=== PATIENT | male | born 1995 | race Caucasian/White ===

== ENCOUNTER 2020-10-13 09:54 | Emergency (ER) | payer SELFPAY ==
[2020-10-13 10:01] VITALS: BP 123/79; PULSE 91; RESP 16; TEMP 36.5; O2SAT 99; BMI 20.7
--- NOTE | 2020-10-13 10:14 | ECG_ITS ---
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 Measurements Intervals [place] Rate: 75 P: -2 WV: 143 QRS: 85 QRSD: 105 T: 60 QT: 369 QTc: 413 Interpretive Statements SINUS RHYTHM No previous ECG available for comparison Electronically Signed On 10-15-2020 9:23:15 NEON PUMPER by Sadia Rasmussen M.D. [id number]
--- NOTE | 2020-10-13 10:15 | XR_ITS ---
WS: [id number] Portable AP upright chest, 10/13/2020 Clinical Data: chest pain; substance abuse Comparison: None. Findings: No nodules, masses or effusions are seen. The heart is normal. The pulmonary vascularity is not increased. No pneumonia or pneumothorax is seen. There is a monitor lead over the left chest wal l. XR/XR chest 1V portable [id number] Impression: Negative chest.
--- NOTE | 2020-10-13 10:23 | ED_ITS ---
HPI - Chest Pain General: Chief Complaint: Chest Pain Stated Complaint: Chest Pain Time Seen by Provider: 10/13/20 10:12 Source: patient Mode of arrival: ambulatory Limitations: no limitations History of Present Illness: HPI narrative: 24-year-old male patient presents to the emergency department with periodic onset of chest pain. He reports history of chest pain that occurred yesterday; he reports pain was sharp and dull, located to the anterior left chest wall. He has history of methamphetamine and fentanyl substance abuse. IV drug abuse; last use was 5 days ago, currently in [facility] for rehabilitation. He reports previous episode of chest pain that occurred while in [place] last month with negative cardiac findings with work-up. He currently denies chest pain upon exam, he is requesting cardiac work-up, he reports pain occurs at varying times, lasting anywhere from 30 minutes to 2 hours. He denies nausea vomiting or cough congestion/fever chills. MD complaint: chest pain and chest discomfort Pertinent past history: other (IV drug abuse, methamphetamine and fentanyl) Onset (ago): day(s) (1) Timing of current episode: episodic Prior episodes: Yes Onset: during rest Pain location: left chest Pain radiation: none Severity: moderate Pain scale (0-10): 5 Quality: tightness and sharp Relieving factors: nothing Exacerbating factors: nothing Associated symptoms: Reports no associated symptoms; Deny abdominal pain, diaphoresis, dyspnea, fever(s), nausea, palpitations, syncope or vomiting Treatment prior to arrival: none Review of Systems General: Reports: 10 or more systems reviewed and unremarkable except in HPI and below Const: Denies: fever(s), chills or diaphoresis Eyes: Denies: blurry vision or eye redness ENMT: Denies: throat pain, dental pain or disequilibrium Card: Reports: chest pain; Denies: palpitations, irregular heart rhythm, edema, swelling of feet/ankles, lightheadedness, syncope, dyspnea on exertion, orthopnea or acrocyanosis Resp: Denies: dyspnea, productive cough, non-productive cough or wheezing GI: Denies: abdominal pain, nausea, vomiting, heartburn, diarrhea or constipation : Denies: dysuria, urinary urgency or difficulty starting urination Musc: Denies: neck pain, back pain, joint pain, joint stiffness, muscle cramps or muscle weakness Skin/Breast: Denies: rash or pruritus Neuro: Denies: headache(s), weakness in extremities or behavioral changes Psych: Denies: anxiety or depression Jaspreet/Lymph: Denies: easy bruising PFSH ED PFSH: Medical History Atypical chest pain Methamphetamine abuse Narcotic abuse Physical Exam Const: COMMON NORMALS: no acute distress, patient oriented x3, healthy appeari ng and alert GENERAL APPEARANCE: cooperative, comfortable, well kempt and well hydrated HENMT: COMMON NORMALS: normocephalic, Normal external nose present and moist oral mucous membranes HEAD & SCALP: normocephalic NOSE: Normal external nose present Eye: COMMON NORMALS: Equal, round and reactive pupils present and EOMs intact bilaterally GENERAL EYE: appearance normal, both eyes and all related structures PUPIL: Yes Equal, round and reactive pupils present Neck/C-Spine: COMMON NORMALS: full ROM and no lymphadenopathy GENERAL: Yes normal visual inspection and Yes trachea midline CERVICAL SPINE: Yes cervical ROM normal Lymph: LYMPHATIC: no lymphadenopathy noted Chest: COMMONS NORMALS: normal inspection of the chest and normal inspection of the breasts CHEST: Yes Symmetrical chest wall rise, Yes tenderness (left anterior chest wall) pectoral muscle on the left, No Ecchymosis present and No wounds Breast/axilla inspection: Yes no chest deformity, asymmetry, normal contours, no nodules, masses, tenderness and Yes normal inspection of the breasts Resp: COMMON NORMALS: normal respiratory effort, No retractions, No use of accessory muscles and clear to auscultation bilaterally EFFORT & INSPECTION: Yes able to speak in complete sentences AUSCULTATION: clear to auscultation bilaterally Cardio: COMMON NORMALS: regular rate, regular rhythm, S1 normal heart sound present, S2 normal heart sound present and Peripheral pulses 2+ throughout RATE: regular rate RHYTHM: regular rhythm HEART SOUNDS: S1 normal heart sound present and S2 normal heart sound present PERIPHERAL PULSES: Peripheral pulses 2+ throughout GI: COMMON NORMALS: Normal to inspection, nondistended, normoactive bowel sounds present, Soft to palpation and non-tender INSPECTION: Yes normal to inspection PALPATION: Yes Soft to palpation : COMMON NORMALS: Yes no CVA tenderness BLADDER/KIDNEY EXAM: Yes no CVA tenderness Back/Pelvis: COMMON NORMALS: no CVA tenderness, thoracic and lumbar spine normal to inspection, no thoracic nor lumbar tenderness and thoraco-lumbar ROM normal Extremity: COMMON NORMALS: normal to inspection and capillary refill normal Neuro: COMMON NORMALS: patient oriented x3 and no focal motor deficits SENSORIUM/ORIENTATION: Yes alert Psych: COMMON NORMALS: mental status grossly normal, Normal thought process present, cooperative, normal affect, speech normal, activity/motor behavior normal, denies hallucinations, denies homicidal ideation and denies suicidal ideation APPEARANCE: Yes grossly normal and Yes well kempt ATTITUDE: Yes calm ACTIVITY/MOTOR BEHAVIOR: Yes appropriate eye contact SPEECH: Yes normal speech THOUGHT PROCESS: Normal thought process present INSIGHT: Good insight present (Psych) JUDGEMENT: Good judgement present (Psych) Skin: COMMON NORMALS: no rashes or lesions noted and turgor normal GENERAL SKIN EXAM: no rashes or lesions noted and turgor normal Course Vital Signs: Vital signs: Vital Signs Temperature 97.7 F 10/13/20 10:01 Pulse Rate 91 10/13/20 10:01 Respiratory Rate 16 10/13/20 10:01 Blood Pressure 123/79 10/13/20 10:01 Pulse Oximetry 97 10/13/20 10:35 MDM - Chest Pain MDM Narrative: Medical decision making narrative: 24-year-old male patient presents to the emergency department with chest pain he has experienced on and off for the past month. History of fentanyl and methamphetamine abuse. [place] in [facility] for rehabilitation; he experience chest pain yesterday, similar to that he has experienced in the past. Did not experience chest pain today or during his stay in the ED. EKG with normal sinus rhythm, no ST depression/elevation; CBC with normal findings; chemistry without acute findings; troponin 6, heart score 0; Wells score for PE 0; chest x-ray without acute findings, negative cardiomegaly. Discussed with patient need for follow- up with primary care provider also discussed etiology possibilities of noncardiac chest pain such as costochondritis, pectoral strain or other musculoskeletal causes. Advised to take Tylenol/ibuprofen as needed for pain; he was also advised to return to the emergency department for concerning findings/symptoms. Questions were answered. Patient states has a medical provider through [facility] and has follow-up appointment available. Lab Data: Labs: Lab Results 10/13/20 10/13/20 10/13/20 Range/Units 10:30 10:30 10:30 WBC 6.3 (4.0-10.0) 10^3/ uL RBC 4.49 (4.1-5.3) 10^6/u L Hgb 13.7 (11.7-16.6) g/dL Hct 41.8 L (42.0-52.0) % MCV 93.1 (80-94) fL MCH 30.5 (28.0-34.0) pg MCHC 32.8 (30.0-36.0) g/dL RDW 12.0 L (12.1-15.1) % Plt Count 346 (130-400) 10^3/c mm MPV 10.5 H (7.4-10.4) fL Neut % (Auto) 50.3 % Lymph % (Auto) 35.0 % [place] % (Auto) 10.1 % Eos % (Auto) 3.5 % Baso % (Auto) 0.9 % Neut # (Auto) 3.19 (1.8-7.7) 10^3/u L Lymph # (Auto) 2.2 (0.8-4.8) 10^3/u L [place] # (Auto) 0.6 (0.2-0.9) 10^3/u L Eos # (Auto) 0.2 (0.0-0.8) 10^3/u L Baso # (Auto) 0.1 (0.0-0.1) 10^3/u L Nucleated RBC % (a uto) 0 % Nucleated RBCs # 0.0 /100WBC Sodium 140 (136-145) mmol/L Potassium 4.1 (3.5-5.1) mmol/L Chloride 101 (98-107) mmol/L Carbon Dioxide 33 H (22-29) mmol/L Anion Gap 10.1 (5-19) BUN 11 (6-20) mg/dL Creatinine 0.8 (0.7-1.2) mg/dL GFR Calculation 119.8 (90-130) mL/min Glucose 83 (65-115) mg/dL Calculated Osmolal ity 289 (285-295) mOsm/k g Calcium 9.3 (8.5-10.5) mg/dL Total Bilirubin 0.2 (0.15-1.2) mg/dL AST 32 (0-40) U/L ALT 43 H (0-41) U/L Alkaline Phosphata se 70 (40-130) IU/L Troponin T Gen 5 n g/L 6 (0-15) ng/L Total Protein 7.5 (6.6-8.7) g/dL Albumin 4.2 (3.5-5.2) g/dL Globulin 3.3 (1.3-4.6) g/dL Imaging Data^: CXR: Radiologist's impression: [address] [address] XRay Report Signed Patient: Julissa Holt #: [id number] : 1995Acct#:[id number] Age/Sex: 24 / MADM Date: 10/13/20 Loc: ERRoom/Bed: Attending Dr: Ordering Provider/Ordering MD: Jazmine Alvarez Date of Service: 10/13/20 Procedure(s): XR chest 1V portable [id number] Accession Number(s): [id number] Report Number: [id number] WS: [id number] Portable AP upright chest, 10/13/2020 Clinical Data: chest pain; substance abuse Comparison: None. Findings: No nodules, masses or effusions are seen. The heart is normal. The pulmonary vascularity is not increased. No pneumonia or pneumothorax is seen. There is a monitor lead over the left chest wall. XR/XR chest 1V portable [id number] Impression: Negative chest. Dictated By:Abbie Gee MD Signed By:Abbie Gee MDSigned Date/Time:10/13/20 1044 DD/ 1043 EKG Data^: EKG 1: EKG interpretation date: 10/13/20 EKG interpretation time: 10:18 Prior EKG tracings: not available for review Other EKG comments: Sinus rhythm, normal ECG, ventricular rate 75 Discharge Plan Discharge Patient Disposition: Home Clinical Impression: Substance abuse Chest pain Qualifiers: Chest pain type: unspecified Qualified Code(s): R07.9 - Chest pain, unspecified Condition: Stable Prescriptions: No Action olanzapine 5 mg tablet 5 mg PO BEDTIME RF: 0 DOK 100 mg capsule 100 mg PO BID RF: 0 gabapentin 300 mg capsule 300 mg PO TID RF: 0 omeprazole 20 mg capsule,delayed release(DR/EC) 20 mg PO DAILY RF: 0 sertraline 50 mg tablet 50 mg PO BEDTIME RF: 0 buprenorphine-naloxone 8-2 mg film 1 film sublingual BID RF: 0 Discharge Orders: Discharge ED (Routine); Ordered 10/13/20 Ordered By: Jazmine Alvarez Discharge Diet: Usual diet Discharge Activity: Resume usual activity Patient Instructions: Chest Pain - Noncardiac, Chest Pain (ED), Polysubstance Abuse (ED) Activity Restrictions/Additional Instructions: addiction social worker will call with appt for primary care follow up return to the ED if you experience difficulty breathing, inability to catch your breath or other concerning symptoms Coding Level of Care Code ED Secretary Book Keeper for Boris Fwdarline Exam Comprehensive
[2020-10-13 10:35] VITALS: O2SAT 97
[2020-10-13 10:44] LABS: Basophils # 0.1 10^3/uL (0.0-0.1); Basophils % 0.9 %; Eosinophils # 0.2 10^3/uL (0.0-0.8); Eosinophils % 3.5 %; Hematocrit 41.8 % (42.0-52.0); Hemoglobin 13.7 g/dL (11.7-16.6); Lymphocytes # 2.2 10^3/uL (0.8-4.8); Mean Corpuscular HGB Conc 32.8 g/dL (30.0-36.0); Mean Corpuscular Hemoglobin 30.5 pg (28.0-34.0); Mean Corpuscular Volume 93.1 fL (80-94); Mean Platelet Volume 10.5 fL (7.4-10.4); Monocytes # 0.6 10^3/uL (0.2-0.9); Monocytes % 10.1 %; Neutrophils # 3.19 10^3/uL (1.8-7.7); Neutrophils % 50.3 %; Nucleated Red Blood Cells % 0 %; Platelet Count 346 10^3/cmm (130-400); Red Blood Count 4.49 10^6/uL (4.1-5.3); White Blood Count 6.3 10^3/uL (4.0-10.0)
[2020-10-13 11:01] LABS: Alanine Aminotransferase 43 U/L (0-41); Albumin Level 4.2 g/dL (3.5-5.2); Alkaline Phosphatase 70 IU/L (40-130); Anion Gap 10.1 (5-19); Aspartate Amino Transferase 32 U/L (0-40); Blood Urea Nitrogen 11 mg/dL (6-20); Calcium 9.3 mg/dL (8.5-10.5); Carbon Dioxide 33 mmol/L (22-29); Chloride 101 mmol/L (98-107); Globulin 3.3 g/dL (1.3-4.6); Glomerular Filtration Rate 119.8 mL/min (90-130); Glucose 83 mg/dL (65-115); Osmolality Calculated 289 mOsm/kg (285-295); Potassium 4.1 mmol/L (3.5-5.1); Sodium 140 mmol/L (136-145); Total Bilirubin 0.2 mg/dL (0.15-1.2); Total Protein 7.5 g/dL (6.6-8.7)
[2020-10-13 12:18] LABS: Troponin T (5th) Once 6 ng/L (0-15)
[2020-10-13 12:50] VITALS: BP 120/80; PULSE 90; RESP 18; O2SAT 98
== END 2020-10-13 12:50 | disposition home or self-care (01) ==
PROVIDERS: Emergency Provider Nurse Practitioner Family
DX: R07.9 Chest pain, unspecified (principal); F19.10 Other psychoactive substance abuse, uncomplicated
CPT/HCPCS: 12345; 71045; 80053; 84484; 85025; 93005; 99282; 99283